=== PATIENT | female | born 1950 | race Hispanic/Latino ===

== ENCOUNTER 2016-09-16 06:12 | Inpatient (IN) | payer MEDICARE ==
--- NOTE | 2016-09-09 11:02 | Anesthesia Consultation ---
Anesthesia Consult and Med Hx Date of service: 09/09/16 - Airway Anesthetic Teeth Evaluation: Poor (broken #10, some missing teeth) ROM Head & Neck: Adequate Mental/Hyoid Distance: Adequate Mallampati Class: Class II Intubation Access Assessment: Probably Good - Pre-Operative Health Status ASA Pre-Surgery Classification: ASA2 Proposed Anesthetic Plan: Epidural, Spinal Nerve Block: fascia iliaca - Pulmonary Hx Smoking: No Hx Asthma: Yes (no spells in last few years) COPD: Yes ("MILD") Hx Sleep Apnea: No (ROBEL PRE SCREEN LOW RISK) - Cardiovascular System Hx Hypertension: No - Gastrointestinal Hx Gastroesophageal Reflux Disease: Yes - Endocrine Hx Non-Insulin Dependent Diabetes: Yes (on metformin) - Other Systems Hx Cancer: No Hx Obesity: Yes (BMI 35.3)
[2016-09-09 11:07] LABS: Basophils % (Auto) 0.3 % (0.0-1.8); Eosinophils % (Auto) 1.6 % (0.0-4.3); Hemoglobin 13.4 gm/dl (10.1-14.3); Mean Corpuscular HGB Conc 33 % (30-34); Mean Corpuscular Hemoglobin 31 pg (28-32); Mean Corpuscular Volume 94 fl (79-97); Platelet Count 247 K/mm3 (140-440); Red Blood Count 4.25 M/mm3 (3.65-5.03); Red Cell Distribution Width 12.3 % (13.2-15.2); White Blood Count 11.3 K/mm3 (4.5-11.0)
[2016-09-09 11:18] LABS: INR 1.01 (0.87-1.13)
[2016-09-09 11:19] LABS: Partial Thromboplastin Time 33.7 Sec. (24.2-36.6)
[2016-09-09 11:26] LABS: Alanine Aminotransferase 26 units/L (7-56); Albumin 3.9 g/dL (3.9-5); Albumin/Globulin Ratio 0.9 %; Alkaline Phosphatase 70 units/L (35-129); Anion Gap 19 mmol/L; BUN/Creatinine Ratio 14.28; Bilirubin,Total 0.4 mg/dL (0.1-1.2); Blood Urea Nitrogen 10 mg/dL (7-17); Carbon Dioxide 25 mmol/L (22-30); Chloride 98.5 mmol/L (98-107); Glucose 87 mg/dL (65-100); Potassium 3.9 mmol/L (3.6-5.0); Sodium 139 mmol/L (137-145); Total Protein 8.2 g/dL (6.3-8.2)
--- NOTE | 2016-09-15 16:05 | History and Physical Report ---
History of Present Illness Date of examination: 09/15/16 Date of admission: 09/16/16 Chief complaint: Pain right hip, difficulty walking, nonresponding to nonoperative management. The admitted for total hip arthroplasty right side. Medications and Allergies Allergies Allergy/AdvReac Type Severity Reaction Status Date / Time No Known Allergies Allergy Verified 09/03/16 15:14 Home Medications Medication Instructions Recorded Confirmed Last Taken Type Alendronate Sodium 35 mg PO QWEEK 09/07/16 09/07/16 Unknown History Furosemide [Lasix TAB] 40 mg PO QDAY 09/07/16 09/07/16 Unknown History HYDROcodone/APAP 5-325 [[place] 1 tab PO PRN PRN 09/07/16 09/07/16 Unknown History 5-325 mg TAB] Ibuprofen [Motrin] 800 mg PO Q8HR PRN 09/07/16 09/07/16 Unknown History Meloxicam 15 mg PO QDAY 09/07/16 09/07/16 Unknown History Promethazine [Phenergan TAB] 25 mg PO Q6HR PRN 09/07/16 09/07/16 Unknown History metFORMIN [Glucophage] 500 mg PO BID 09/07/16 09/07/16 Unknown History Active Meds: Active Medications Celecoxib (Celebrex) 200 mg PO PREOP NR Stop: 09/16/16 23:59 Famotidine (Pepcid) 20 mg IV PREOP NR Stop: 09/16/16 23:59 Gabapentin (Neurontin) 150 mg PO PREOP NR Stop: 09/16/16 23:59 Cefazolin Sodium (Ancef/Sterile Water 2 Gm/20 Ml) 20 mls @ 80 mls/hr IV PREOP NR PRN Reason: Protocol Stop: 09/16/16 23:00 Sodium Chloride (Nacl 0.9% 1000 Ml) 1,000 mls @ 100 mls/hr IV DIRECT [place] Midazolam HCl (Versed) 2 mg IV PREOP NR Stop: 09/16/16 23:59 Review of Systems All systems: negative Exam - Constitutional Vitals: Temp Pulse Resp BP Pulse Ox 99.2 F 66 20 130/60 09/09/16 10:30 09/09/16 10:30 09/09/16 10:30 09/09/16 10:30 General appearance: Present: no acute distress, well-nourished - EENT Eyes: Present: PERRL ENT: hearing intact, clear oral mucosa - Neck Neck: Present: supple, normal ROM - Respiratory Respiratory effort: normal Respiratory: bilateral: CTA - Cardiovascular Heart Sounds: Present: S1 & S2. Absent: rub, click - Extremities Extremities: pulses symmetrical, No edema Extremity abnormal: other (Right hip with limping gait,vital signs stable. Tenderness at the right hip, trochanter. Pain with flexion adduction internal rotation, internal rotation 10 with pain, external rotation 40.) Peripheral Pulses: within normal limits - Abdominal General gastrointestinal: Present: soft, non-tender, non-distended, normal bowel sounds Female genitourinary: Present: normal - Integumentary Integumentary: Present: clear, warm, dry - Musculoskeletal Musculoskeletal: gait normal, strength equal bilaterally - Psychiatric Psychiatric: appropriate mood/affect, intact judgment & insight - Neurologic Neurologic: CNII-XII intact, moves all extremities Results - Labs CBC & Chem 7: 09/09/16 10:40 09/09/16 10:40 Assessment and Plan - Patient Problems (1) Osteoarthritis of right hip Status: Chronic Qualifiers: Osteoarthritis type: primary Qualified Code(s): M16.11 - Unilateral primary osteoarthritis, right hip Plan to address problem: right total hip arthroplasty.
[~2016-09-16 06:12] MED LIST: ACD-A IV ONE; ANCEF/STERILE WATER 2 GM/20 ML 20 ML IV NR; NEURONTIN PO NR; PEPCID IV NR; VERSED IV NR
[2016-09-16] MEDS: NACL 0.9% 1000 ML 1,000 ML IV SCH ×4 (07:06→12:01)
[2016-09-16] MEDS ORDERED: DIPRIVAN 10 MG/ML IV ONE (08:09)
[2016-09-16] MEDS ORDERED: ePHEDrine SULFATE IV PRN (08:22)
[2016-09-16] MEDS ORDERED: ZOFRAN ONE (08:41)
[2016-09-16] MEDS ORDERED: ROBINUL ONE (08:41)
[2016-09-16] MEDS ORDERED: REGLAN ONE (08:41)
[2016-09-16] MEDS ORDERED: NEO SYNEPHRINE/NS Syringe(OR USE) IV ONE (08:41)
[2016-09-16] MEDS ORDERED: XYLOCAINE MPF 2% ONE (08:55)
[2016-09-16] MEDS ORDERED: NACL 0.9% IR ONE ×2 (09:18)
[2016-09-16] MEDS ORDERED: NEOSPORIN GU IR ONE (09:18)
--- NOTE | 2016-09-16 10:19 | Admit Criteria Form ---
Admission Criteria Documentation: AMBULATORY SURGERY EXCEPTION CRITERIA Ambulatory Surgery Exception Criteria ( Place 'X' for any and all applicable criteria): Surgery or procedure performed on ambulatory basis may require inpatient stay for[A] ANY ONE of the following(1)(2)(3)(4)(5)(6)(7)(8)(9): [X] I. A preoperative situation, condition, or finding that warrants inpatient stay as indicated by ANY ONE of the following: [X] a) Inpatient care needed because of severity of a disease or condition rather than the surgery (eg, severe cardiac or respiratory disease, severe infection) (15) (16 ) (17) (18) [] b) Emergent procedure (eg, angioplasty for acute ischemia)(19) [] c) Complex surgical approach or situation as indicated by ANY ONE of the following(3): [] i) Open approach needed instead of usual endoscopic, transcatheter, or other less invasive procedure [] ii) Difficult approach because of previous operation [] iii) Airway monitoring required after open neck procedures(20)(21) [] iv) Large mass requiring unusually extensive dissection [] v) Additional complicating feature requiring inpatient care (eg, drain management)(22(23): [] d) Major surgery in a pt with high anesthetic risk as indicated by ANY ONE of the following (2)(3)(5)(7)(8): [] i) ASA risk class III or higher (severe systemic disease impairing function) [D] [] ii) Advanced age (eg, older than 85 years)(14)(24) [] iii) Symptomatic heart failure(25) [] iv) Symptomatic asthma or COPD(8)(21) [] v) Morbid obesity with hemodynamic or respiratory problems(20)( 21)(26)(27) [] vi) Obstructive sleep apnea(20)(21) [] vii) Former premature infants who are younger than 60 weeks [] viii) High risk for severe postoperative abnormalities (eg, severe postoperative hypocalcemia after parathyroidectomy for severe hyperparathyroidism)(27)( 28) [] ix) Unstable angina(25) [] e) Drug-related risk requiring inpatient stay as indicated by ANY ONE of the following(5)(10)(14)(32)(33) [] i) Procedure requires discontinuing drugs or other therapy (eg , antiarrhythmic medication, antiseizure medication), which necessitates inpatient observation or treatment.(18)(31) [] ii) Major surgery and high risk drug use as indicated by ANY ONE of the following: [] 1) Active abuse of cocaine or similar drug [] 2) Monoamine oxidase inhibitor use [] 3) Other drug identified as posing risk [] f) Inadequate outpatient care situation as indicated by ANY ONE of the following(5)(10)(14)(32)(33) [] i) Patient lives remote from medical facility and procedure has urgent complication potential, and temporary nearby residence cannot be arranged [] ii) Patient will have postprocedure incapacitation and inadequate assistance at home, or alternative level of care cannot be arranged. [] iii) Patient will have long general anesthesia or procedure side effect resolution time, and competent person to stay with patient on first postoperative night at home or alternative level of care cannot be arranged. []iv) Other inadequate outpatient situation that cannot be handled by other means [] II. A perioperative event, condition, or finding that warrants inpatient stay as indicated by ANY ONE of the following (1)(2)(3): [] a) Inadequate physiologic recovery: cardiovascular, respiratory, or hemodynamic status not normal or near preoperative baseline(18) [] b) Hemodynamic instability [] c) Patient not alert with near normal or baseline mental status [] d) Temperature not normal or as expected and not appropriate for outpatient treatment of condition [] e) Ambulatory or appropriate activity level status not yet achieved post procedure [E](34)(35)(36) [] f) Operative site not appropriate (eg, unexpected or excessive drainage or bleeding) [] g) Postoperative effects not resolved or adequately managed (eg, significant pain or vomiting not appropriate for outpatient or next level of care)(10)(12) [] h) Complicating features requiring inpatient care as indicated by ANY ONE of the following(37): [] i) Severe complications of procedure (eg, bowel injury, airway compromise, vascular injury,severe hemorrhage) [] ii) Extensive (eg, dissection far beyond usual scope of procedure ) or prolonged (eg, 120 minutes beyond usual) surgery needed requiring inpatient postoperative care [] iii) Conversion to an open or complex procedure that requires inpatient care (eg, open vs laparoscopic cholecystectomy, abdominal vs vaginal hysterectomy)(38) [] iv) Comorbid condition or test result identified during or post procedure that requires inpatient care (7) [] v) Malignant hyperthermia(30) [] vi) Other complicating feature requiring inpatient care(22)(23) Inpatient stay may be needed until ALL of the following are present (1)(2)(3)(4) (5)(6)(10)(14)(33)(40): []a) Physiologic recovery: cardiovascular, respiratory, and hemodynamic status normal or near preoperative baseline []b) Hemodynamic stability []c) Patient alert, with near normal or baseline mental status []d) Temperature appropriate: patient afebrile or temperature appropriate for outpt treatment of condition []e) Activity level appropriate: ambulatory or appropriate activity level post procedure []f) Operative site appropriate as indicated by ALL of the following: []i) Site dry or with expected drainage []ii) Any blood noted is as expected for procedure. []g) Postoperative effects resolved or managed as indicated by ALL of the following: []i) Pain management appropriate for outpatient (or next level of) care(10) []ii) Minimal nausea and vomiting: if present, successfully treated with oral medication(12) []iii) Headache, dizziness, or drowsiness (if present) are mild. []h) Voiding status acceptable as indicated by ANY ONE of the following: []i) Voiding spontaneously []ii) No voiding but instructions given for follow-up in 6 to 8 hours []iii) Urinary catheter in place, and instructions given for follow-up []i) Complicating features requiring inpatient care manageable at a lower level of care(37) []j) Comorbid conditions manageable at a lower level of care(37) The original [employer] content created by [employer] has been revised. The portions of the content which have been revised are identified through the use of italic text or in bold, and [email or web address] has neither reviewed nor approved the modified material. All other unmodified content is copyright [employer]. Please see references footnoted in the original [employer] edition 2016 Admission Criteria Met: Yes
--- NOTE | 2016-09-16 10:22 | Procedure Note ---
Date of procedure: 09/16/16 Pre-op diagnosis: DJD right hip Post-op diagnosis: same Procedure: Right total hip arthroplastty Anesthesia: GETA, spinal Surgeon: FARHEEN LABOY Estimated blood loss: other Pathology: list Specimen disposition: to lab Condition: stable Disposition: PACU
[2016-09-16] MEDS ORDERED: NARCAN 0.4 MG/1 ML IV PRN ×2 (10:29→16:33)
[2016-09-16] MEDS ORDERED: SODIUM CHLORIDE FLUSH SYRINGE 10 ML IV PRN ×2 (10:35→16:33)
[2016-09-16] MEDS ORDERED: SUBLIMAZE ONE (10:43)
[2016-09-16] MEDS ORDERED: MORPHINE PCA 30MG/30ML IV SCH (11:00)
[2016-09-16] MEDS ORDERED: ZOFRAN IV PRN ×2 (11:00→16:33)
[2016-09-16] MEDS ORDERED: fentaNYL-BUPIV 2 MCG/ML-0.125% 100 ML EPIDURAL SCH (11:00)
--- NOTE | 2016-09-16 11:33 | Operative Report ---
PREOPERATIVE DIAGNOSIS: Severe degenerative joint disease, right hip. POSTOPERATIVE DIAGNOSIS: Severe degenerative joint disease, right hip. OPERATIVE PROCEDURE: Right total hip arthroplasty using [place] system, components press fitted. SURGEON: Roberto Carlos Yost MD CORPORATE LICENSED BROKER: Emilia Alcazar CSA. ANESTHESIA: Spinal. BLOOD LOSS: . DESCRIPTION OF PROCEDURE: The patient was taken to surgery suite, satisfactory analgesia obtained with spinal anesthetic supplemented with general sedation for muscle relaxation. She was positioned on lateral position, right hip area prepped with ChloraPrep, satisfactorily draped. After confirming the correct patient, procedure, and surgical site, an incision was made starting at a point approximately 2 cm distal to the greater trochanter extending to the posterosuperior iliac spine. Incision was deepened through the thickness of skin and subcutaneous, deep fascia incised and the gluteus was split. Joint capsule was incised. Hip was dislocated posteriorly. Femoral head appeared severely deformed with moderate fibrosis in the joint capsule and with severe deformity involving the superior aspect of the femoral head. The femoral head was then resected approximately 1 cm proximal to the lesser trochanter. The femur was reamed and broached to size 8 press fit which appeared giving satisfactory fit. The acetabulum was then reamed to 54 mm diameter to subchondral level. Remaining osteophytes were debrided. After irrigation, a 52 mm acetabular shell was press fitted at 40 degree abduction and 20 degree anteversion. Through the superior quadrant, a drill hole was made and a screw length 30 mm size 6.5 mm diameter applied thereby stabilizing the shell. The shell was then coupled with an acetabular shell to give 36 mm diameter inside and 10 degree posterior superior overlap. The wound was irrigated and press fitted with a femoral stem size 8. Trial reduction carried out using a 36 mm femoral head zero neck length, which appeared giving equalization of leg length and satisfactory range of motion and hip appeared stable both anterior and posterior. Trial head was then exchanged for a ceramic head 36 mm diameter and the hip was again reduced. Following irrigation, the wound was closed in layers in the standard fashion. Sterile dressings were applied with abduction wedge. The patient was transferred to recovery room in satisfactory condition, tolerated the procedure well and at the completion of procedure, counts were accurate. JOB# [id number] BUD/ANDREW KENDRICK
--- NOTE | 2016-09-16 11:48 | XRay Report ---
Right hip single view: History: Right hip arthroplasty. Findings: There is total hip replacement noted. The acetabular and the femoral component appears anatomic and in alignment. No fracture or dislocation. Impression: Stable right hip arthroplasty.
[2016-09-16] MEDS: DILAUDID IV PRN ×2 (11:55→12:15)
--- NOTE | 2016-09-16 12:24 | Post Anesthesia Evaluation ---
- Post Anesthesia Evaluation Patient Participated: Yes Airway Patent: Yes Stable Respiratory Function: Yes Temp > 96.8F: Yes Pain Manageable: Yes Adequeate Hydration: Yes Anesthesia Complications: No Block Receding Appropriately: Yes
--- NOTE | 2016-09-16 12:25 | Anesthesia Day of Surgery ---
Anesthesia Day of Surgery - Day of Surgery Patient Examined: Yes Patient H&P Reviewed: Yes Patient is NPO: Yes
[2016-09-16] MEDS ORDERED: LOPRESSOR IV NR (13:13)
[2016-09-16] MEDS ORDERED: D50W (25GM) IV PRN (16:33)
[2016-09-16] MEDS ORDERED: TYLENOL PO PRN (16:33)
[2016-09-16] MEDS ORDERED: ANCEF/NS 1 GM/50 ML 50 ML IV SCH (16:33)
[2016-09-16] MEDS ORDERED: AMBIEN PO PRN (16:33)
[2016-09-16] MEDS: GLUCOPHAGE PO SCH (21:11)
[2016-09-16] MEDS: ASPIRIN PO SCH (21:11)
[2016-09-16] MEDS: COLACE PO SCH (21:11)
--- NOTE | 2016-09-16 21:36 | Consultation ---
History of Present Illness - Reason for Consult Consult date: 09/16/16 Medical management Requesting physician: FARHEEN LABOY - History of Present Illness S/p Rt Hip Arthroplasty-post op doing well. Past History Past Medical History: arthritis, diabetes, hypertension, other (osteoporosis) Past Surgical History: total hip replacement Social history: lives with family Medications and Allergies Allergies Allergy/AdvReac Type Severity Reaction Status Date / Time No Known Allergies Allergy Verified 09/03/16 15:14 Home Medications Medication Instructions Recorded Confirmed Last Taken Type Alendronate Sodium 35 mg PO QWEEK 09/07/16 09/16/16 09/11/16 09:00 History Furosemide [Lasix TAB] 40 mg PO QDAY 09/07/16 09/16/16 09/15/16 20:00 History HYDROcodone/APAP 5-325 [[place] 1 tab PO PRN PRN 09/07/16 09/16/16 09/15/16 20:00 History 5-325 mg TAB] Ibuprofen [Motrin] 800 mg PO Q8HR PRN 09/07/16 09/07/16 Unknown History Meloxicam 15 mg PO QDAY 09/07/16 09/16/16 09/14/16 09:00 History Promethazine [Phenergan TAB] 25 mg PO Q6HR PRN 09/07/16 09/07/16 Unknown History metFORMIN [Glucophage] 500 mg PO BID 09/07/16 09/16/16 09/15/16 20:00 History Active Meds: Active Medications Acetaminophen (Tylenol) 650 mg PO Q4H PRN PRN Reason: Pain MILD(1-3)/Fever >100.5/CHAIREZ Aspirin (Aspirin) 325 mg PO BID [facility] Last Admin: 09/16/16 21:11 Dose: 325 mg Celecoxib (Celebrex) 100 mg PO BID [facility] Last Admin: 09/16/16 21:12 Dose: 100 mg Dextrose (D50w (25gm)) 50 ml IV PRN PRN PRN Reason: Hypoglycemia Docusate Sodium (Colace) 100 mg PO BID [facility] Last Admin: 09/16/16 21:11 Dose: 100 mg Enoxaparin Sodium (Lovenox) 40 mg SUB-Q QDAY [facility] Furosemide (Lasix) 40 mg PO QDAY [facility] Sodium Chloride (Nacl 0.9% 1000 Ml) 1,000 mls @ 100 mls/hr IV DIRECT [facility] Last Admin: 09/16/16 12:01 Dose: 100 mls/hr Fentanyl/Bupivacaine/Sodium Chlor (Fentanyl-Bupiv 2 Mcg/Ml-0.125%) 100 mls @ 10 mls/hr EPIDURAL DIRECT [facility] PRN Reason: Protocol Stop: 09/17/16 11:00 Last Admin: 09/16/16 11:50 Dose: 10 mls/hr Cefazolin Sodium (Ancef/Ns 1 Gm/50 Ml) 50 mls @ 100 mls/hr IV Q8H [facility] Stop: 09/17/16 01:02 Metformin HCl (Glucophage) 500 mg PO BID@0800,2000 [facility] Last Admin: 09/16/16 21:11 Dose: 500 mg Multivitamins (Theragran Tab) 1 each PO QDAY [facility] Naloxone HCl (Narcan 0.4 Mg/1 Ml) 0.1 mg IV Q2MIN PRN PRN Reason: Res Rate </= 8 or 02 SAT < 92% Ondansetron HCl (Zofran) 4 mg IV Q8H PRN PRN Reason: Nausea And Vomiting Oxycodone HCl (Oxycontin) 10 mg PO Q12HR [facility] Oxycodone/Acetaminophen (Percocet 5/325) 1 tab PO Q6H PRN PRN Reason: Pain, Moderate (4-6) Sodium Chloride (Sodium Chloride Flush Syringe 10 Ml) 10 ml IV PRN PRN PRN Reason: LINE FLUSH Zolpidem Tartrate (Ambien) 5 mg PO QHS PRN PRN Reason: Sleep Review of Systems All systems: negative Exam - Constitutional Vitals: Temp Pulse Resp BP Pulse Ox 99.2 F 91 H 20 116/56 95 09/16/16 19:30 09/16/16 19:30 09/16/16 19:30 09/16/16 19:30 09/16/16 19:30 General appearance: Present: no acute distress, well-nourished - EENT Eyes: Present: PERRL ENT: hearing intact, clear oral mucosa - Neck Neck: Present: supple, normal ROM - Respiratory Respiratory effort: normal Respiratory: bilateral: CTA - Cardiovascular Heart Sounds: Present: S1 & S2. Absent: rub, click - Extremities Extremities: pulses symmetrical, No edema Peripheral Pulses: within normal limits - Abdominal General gastrointestinal: Present: soft, non-tender, non-distended, normal bowel sounds Female genitourinary: Present: normal - Integumentary Integumentary: Present: clear, warm, dry - Musculoskeletal Musculoskeletal: gait normal, strength equal bilaterally - Psychiatric Psychiatric: appropriate mood/affect, intact judgment & insight - Neurologic Neurologic: CNII-XII intact, moves all extremities Results - Labs CBC & Chem 7: 09/09/16 10:40 09/09/16 10:40 Labs: Abnormal lab results 09/16/16 Range/Units 17:04 POC Glucose 159 H (70-105) Assessment and Plan - Patient Problems (1) Osteoarthritis of right hip Current Visit: Yes Status: Chronic Qualifiers: Osteoarthritis type: primary Qualified Code(s): M16.11 - Unilateral primary osteoarthritis, right hip Plan to address problem: S/p rt KELLY (2) T2DM (type 2 diabetes mellitus) Current Visit: Yes Status: Chronic Qualifiers: Diabetes mellitus complication status: without complication Diabetes mellitus watermaster insulin use: without watermaster use Qualified Code(s): E11.9 - Type 2 diabetes mellitus without complications Plan to address problem: Metformin and coverage (3) Arthritis Current Visit: Yes Status: Chronic Plan to address problem: On meloxicam (4) Osteoporosis Current Visit: Yes Status: Chronic Plan to address problem: On Alendronate (5) Edema extremities Current Visit: Yes Status: Chronic Plan to address problem: on lasix 40 mg po qd (6) DVT prophylaxis Current Visit: Yes Status: Acute Plan to address problem: On Lovenox
[2016-09-16] MEDS ORDERED: GLUCOPHAGE PO SCH (22:00)
[2016-09-17] MEDS: OxyCONTIN PO SCH ×3 (05:35→21:49)
[2016-09-17] MEDS: ASPIRIN PO SCH ×2 (09:10→21:48)
[2016-09-17] MEDS: LASIX PO SCH (09:10)
[2016-09-17] MEDS: COLACE PO SCH ×2 (09:10→21:49)
[2016-09-17] MEDS: THERAGRAN Tab PO SCH (09:10)
[2016-09-17] MEDS: GLUCOPHAGE PO SCH ×2 (09:11→21:50)
[2016-09-17] MEDS: NOVOLOG SUB-Q SCH (09:11)
[2016-09-17] MEDS: PERCOCET 5/325 PO PRN (12:52)
--- NOTE | 2016-09-17 13:39 | Progress Note ---
Assessment and Plan Assessment and plan: Patient is a pleasant 66-year-old female admitted to the hospital for right hip arthroplasty following severe right hip pain that has failed outpatient therapy. - Patient Problems (1) Osteoarthritis of right hip Current Visit: Yes Status: Chronic Qualifiers: Osteoarthritis type: primary Qualified Code(s): M16.11 - Unilateral primary osteoarthritis, right hip Plan to address problem: Status post right hip arthroplasty stable. Worked with physical therapy. Pain control per surgeon. Incentive spirometer encouraged and discussed in detail with the patient. (2) Arthritis Current Visit: Yes Status: Chronic Plan to address problem: Stable continue current therapy (3) Edema extremities Current Visit: Yes Status: Chronic Plan to address problem: Continue current lasix. Monitor Renal function (4) Osteoporosis Current Visit: Yes Status: Chronic (5) T2DM (type 2 diabetes mellitus) Current Visit: Yes Status: Chronic Qualifiers: Diabetes mellitus complication status: without complication Diabetes mellitus custodial insulin use: without custodial use Qualified Code(s): E11.9 - Type 2 diabetes mellitus without complications Plan to address problem: Continue metformin (6) DVT prophylaxis Current Visit: Yes Status: Acute History Interval history: Follow-up right hip arthroplasty-postop day 1 Patient seen and examined this morning in no acute distress Denies any chest pain, nausea, vomiting, diarrhea No fever noted blood pressure controlled No adverse events reported to me by nursing staff Hospitalist Physical - Physical exam Narrative exam: VITAL SIGNS: Reviewed. GENERAL: The patient appeared well nourished and normally developed. Vital signs as documented. HEAD: No signs of head trauma. EYES: Pupils are equal. Extraocular motions intact. EARS: Hearing grossly intact. MOUTH: Oropharynx is normal. NECK: No adenopathy, no JVD. CHEST: Chest with clear breath sounds bilaterally. No wheezes, rales, or rhonchi. CARDIAC: Regular rate and rhythm. S1 and S2, without murmurs, gallops, or rubs. VASCULAR: No Edema. Peripheral pulses normal and equal in all extremities. ABDOMEN: Soft, without detectable tenderness. No sign of distention. No rebound or guarding, and no masses palpated. Bowel Sounds normal. MUSCULOSKELETAL: Good range of motion of all major joints. Extremities without clubbing, cyanosis or edema. NEUROLOGIC EXAM: Alert and oriented x 3. No focal sensory or strength deficits. Speech normal. Follows commands. PSYCHIATRIC: Mood normal. SKIN: Right hip surgical dressing in place no overt drainage - Constitutional Vitals: Temp Pulse Resp BP Pulse Ox 98.9 F 89 16 115/53 91 09/17/16 12:00 09/17/16 12:00 09/17/16 12:52 09/17/16 12:00 09/17/16 08:18 General appearance: Present: no acute distress, well-nourished Results - Labs CBC & Chem 7: 09/09/16 10:40 09/09/16 10:40 Labs: Laboratory Last Values WBC 11.3 K/mm3 (4.5-11.0) H 09/09/16 10:40 RBC 4.25 M/mm3 (3.65-5.03) 09/09/16 10:40 Hgb 13.4 gm/dl (10.1-14.3) 09/09/16 10:40 Hct 40.0 % (30.3-42.9) 09/09/16 10:40 MCV 94 fl (79-97) 09/09/16 10:40 MCH 31 pg (28-32) 09/09/16 10:40 MCHC 33 % (30-34) 09/09/16 10:40 RDW 12.3 % (13.2-15.2) L 09/09/16 10:40 Plt Count 247 K/mm3 (140-440) 09/09/16 10:40 Lymph % (Auto) 31.3 % (13.4-35.0) 09/09/16 10:40 [place] % (Auto) 10.9 % (0.0-7.3) H 09/09/16 10:40 Eos % (Auto) 1.6 % (0.0-4.3) 09/09/16 10:40 Baso % (Auto) 0.3 % (0.0-1.8) 09/09/16 10:40 Lymph # 3.5 K/mm3 (1.2-5.4) 09/09/16 10:40 [place] # 1.2 K/mm3 (0.0-0.8) H 09/09/16 10:40 Eos # 0.2 K/mm3 (0.0-0.4) 09/09/16 10:40 Baso # 0.0 K/mm3 (0.0-0.1) 09/09/16 10:40 Seg Neutrophils % 55.9 % (40.0-70.0) 09/09/16 10:40 Seg Neutrophils # 6.3 K/mm3 (1.8-7.7) 09/09/16 10:40 PT 13.2 Sec. (12.2-14.9) 09/09/16 10:40 INR 1.01 (0.87-1.13) 09/09/16 10:40 APTT 33.7 Sec. (24.2-36.6) 09/09/16 10:40 Sodium 139 mmol/L (137-145) 09/09/16 10:40 Potassium 3.9 mmol/L (3.6-5.0) 09/09/16 10:40 Chloride 98.5 mmol/L (98-107) 09/09/16 10:40 Carbon Dioxide 25 mmol/L (22-30) 09/09/16 10:40 Anion Gap 19 mmol/L 09/09/16 10:40 BUN 10 mg/dL (7-17) 09/09/16 10:40 Creatinine 0.7 mg/dL (0.7-1.2) 09/09/16 10:40 Estimated GFR > 60 ml/min 09/09/16 10:40 BUN/Creatinine Ratio 14.28 % 09/09/16 10:40 Glucose 87 mg/dL (65-100) 09/09/16 10:40 POC Glucose 116 (70-105) H 09/17/16 11:41 Calcium 10.0 mg/dL (8.4-10.2) 09/09/16 10:40 Total Bilirubin 0.4 mg/dL (0.1-1.2) 09/09/16 10:40 AST 43 units/L (5-40) H 09/09/16 10:40 ALT 26 units/L (7-56) 09/09/16 10:40 Alkaline Phosphatase 70 units/L (35-129) 09/09/16 10:40 Total Protein 8.2 g/dL (6.3-8.2) 09/09/16 10:40 Albumin 3.9 g/dL (3.9-5) 09/09/16 10:40 Albumin/Globulin Ratio 0.9 % 09/09/16 10:40 Blood Type O POSITIVE 09/16/16 06:45 Antibody Screen Negative 09/16/16 06:45
--- NOTE | 2016-09-17 15:28 | Progress Note ---
Assessment and Plan - Patient Problems (1) Osteoarthritis of right hip Current Visit: Yes Status: Chronic Qualifiers: Osteoarthritis type: primary Qualified Code(s): M16.11 - Unilateral primary osteoarthritis, right hip Plan to address problem: Continue with progressive ablation, DVT prophylaxis, plan discharge in the next one to 2 days. Subjective Date of service: 09/17/16 Interval history: Status post total hip arthroplasty, sat by bedside, no complaints today. No calf pain, tenderness. Objective Vital signs: Vital Signs - 12hr 09/17/16 09/17/16 09/17/16 04:00 07:00 08:00 Temperature 99.1 F 93 F L Pulse Rate [ Apical] Pulse Rate [ 104 H Right From Monitor] Respiratory 20 18 20 Rate Respiratory Rate [Right Hip ] Blood Pressure 102/48 118/54 [Right Arm] O2 Sat by Pulse 96 93 Oximetry 09/17/16 09/17/16 09/17/16 08:10 08:18 09:10 Temperature Pulse Rate [ Apical] Pulse Rate [ Right From Monitor] Respiratory 20 Rate Respiratory Rate [Right Hip ] Blood Pressure [Right Arm] O2 Sat by Pulse 93 91 Oximetry 09/17/16 09/17/16 09/17/16 09:11 10:10 10:11 Temperature Pulse Rate [ Apical] Pulse Rate [ Right From Monitor] Respiratory 20 16 20 Rate Respiratory Rate [Right Hip ] Blood Pressure [Right Arm] O2 Sat by Pulse Oximetry 09/17/16 09/17/16 09/17/16 10:24 12:00 12:52 Temperature 98.9 F Pulse Rate [ 89 Apical] Pulse Rate [ Right From Monitor] Respiratory 18 16 Rate Respiratory 16 Rate [Right Hip ] Blood Pressure 115/53 [Right Arm] O2 Sat by Pulse Oximetry 09/17/16 15:23 Temperature 98.8 F Pulse Rate [ 100 H Apical] Pulse Rate [ Right From Monitor] Respiratory 18 Rate Respiratory Rate [Right Hip ] Blood Pressure 119/54 [Right Arm] O2 Sat by Pulse Oximetry - Labs CBC & BMP: 09/09/16 10:40 09/09/16 10:40 Labs: Abnormal lab results 09/16/16 09/17/16 09/17/16 Range/Units 17:04 08:11 11:41 POC Glucose 159 H 126 H 116 H (70-105)
[2016-09-17] MEDS: NACL 0.9% 1000 ML 1,000 ML IV SCH (16:40)
[2016-09-17] MEDS: LOVENOX SUB-Q SCH (17:14)
[2016-09-18] MEDS: NACL 0.9% 1000 ML 1,000 ML IV SCH ×2 (01:42→10:42)
[2016-09-18] MEDS: NOVOLOG SUB-Q SCH (08:41)
[2016-09-18] MEDS: GLUCOPHAGE PO SCH ×2 (10:41→19:50)
[2016-09-18] MEDS: LASIX PO SCH (10:42)
[2016-09-18] MEDS: LOVENOX SUB-Q SCH (10:42)
[2016-09-18] MEDS: PERCOCET 5/325 PO PRN ×2 (10:42→19:50)
[2016-09-18] MEDS: COLACE PO SCH ×2 (10:42→22:15)
[2016-09-18] MEDS: THERAGRAN Tab PO SCH (10:42)
[2016-09-18] MEDS: OxyCONTIN PO SCH ×2 (10:42→22:56)
[2016-09-18] MEDS: ASPIRIN PO SCH ×2 (10:42→22:55)
--- NOTE | 2016-09-18 12:17 | Progress Note ---
Assessment and Plan Assessment and plan: Patient is a pleasant 66-year-old female admitted to the hospital for right hip arthroplasty following severe right hip pain that has failed outpatient therapy. - Patient Problems (1) Osteoarthritis of right hip Current Visit: Yes Status: Chronic Qualifiers: Osteoarthritis type: primary Qualified Code(s): M16.11 - Unilateral primary osteoarthritis, right hip Plan to address problem: Status post right hip arthroplasty stable. Worked with physical therapy. Pain control per surgeon. Incentive spirometer encouraged and discussed in detail with the patient. (2) Arthritis Current Visit: Yes Status: Chronic Plan to address problem: Stable continue current therapy (3) Edema extremities Current Visit: Yes Status: Chronic Plan to address problem: Continue current lasix. Monitor Renal function (4) Osteoporosis Current Visit: Yes Status: Chronic (5) T2DM (type 2 diabetes mellitus) Current Visit: Yes Status: Chronic Qualifiers: Diabetes mellitus complication status: without complication Diabetes mellitus alf insulin use: without alf use Qualified Code(s): E11.9 - Type 2 diabetes mellitus without complications Plan to address problem: Continue metformin (6) DVT prophylaxis Current Visit: Yes Status: Acute History Interval history: Follow-up right hip arthroplasty-postop day 2 Patient seen and examined this morning in no acute distress Denies any chest pain, nausea, vomiting, diarrhea No fever noted blood pressure controlled No adverse events reported to me by nursing staff Hospitalist Physical - Physical exam Narrative exam: VITAL SIGNS: Reviewed. GENERAL: The patient appeared well nourished and normally developed. Vital signs as documented. HEAD: No signs of head trauma. EYES: Pupils are equal. Extraocular motions intact. EARS: Hearing grossly intact. MOUTH: Oropharynx is normal. NECK: No adenopathy, no JVD. CHEST: Chest with clear breath sounds bilaterally. No wheezes, rales, or rhonchi. CARDIAC: Regular rate and rhythm. S1 and S2, without murmurs, gallops, or rubs. VASCULAR: No Edema. Peripheral pulses normal and equal in all extremities. ABDOMEN: Soft, without detectable tenderness. No sign of distention. No rebound or guarding, and no masses palpated. Bowel Sounds normal. MUSCULOSKELETAL: Good range of motion of all major joints. Extremities without clubbing, cyanosis or edema. NEUROLOGIC EXAM: Alert and oriented x 3. No focal sensory or strength deficits. Speech normal. Follows commands. PSYCHIATRIC: Mood normal. SKIN: Right hip surgical dressing in place no overt drainage - Constitutional Vitals: Temp Pulse Resp BP Pulse Ox 98.5 F 96 H 19 121/58 98 09/18/16 08:00 09/18/16 08:00 09/18/16 10:42 09/18/16 08:00 09/18/16 08:00 General appearance: Present: no acute distress, well-nourished Results - Labs CBC & Chem 7: 09/09/16 10:40 09/09/16 10:40 Labs: Laboratory Last Values WBC 11.3 K/mm3 (4.5-11.0) H 09/09/16 10:40 RBC 4.25 M/mm3 (3.65-5.03) 09/09/16 10:40 Hgb 13.4 gm/dl (10.1-14.3) 09/09/16 10:40 Hct 40.0 % (30.3-42.9) 09/09/16 10:40 MCV 94 fl (79-97) 09/09/16 10:40 MCH 31 pg (28-32) 09/09/16 10:40 MCHC 33 % (30-34) 09/09/16 10:40 RDW 12.3 % (13.2-15.2) L 09/09/16 10:40 Plt Count 247 K/mm3 (140-440) 09/09/16 10:40 Lymph % (Auto) 31.3 % (13.4-35.0) 09/09/16 10:40 [place] % (Auto) 10.9 % (0.0-7.3) H 09/09/16 10:40 Eos % (Auto) 1.6 % (0.0-4.3) 09/09/16 10:40 Baso % (Auto) 0.3 % (0.0-1.8) 09/09/16 10:40 Lymph # 3.5 K/mm3 (1.2-5.4) 09/09/16 10:40 [place] # 1.2 K/mm3 (0.0-0.8) H 09/09/16 10:40 Eos # 0.2 K/mm3 (0.0-0.4) 09/09/16 10:40 Baso # 0.0 K/mm3 (0.0-0.1) 09/09/16 10:40 Seg Neutrophils % 55.9 % (40.0-70.0) 09/09/16 10:40 Seg Neutrophils # 6.3 K/mm3 (1.8-7.7) 09/09/16 10:40 PT 13.2 Sec. (12.2-14.9) 09/09/16 10:40 INR 1.01 (0.87-1.13) 09/09/16 10:40 APTT 33.7 Sec. (24.2-36.6) 09/09/16 10:40 Sodium 139 mmol/L (137-145) 09/09/16 10:40 Potassium 3.9 mmol/L (3.6-5.0) 09/09/16 10:40 Chloride 98.5 mmol/L (98-107) 09/09/16 10:40 Carbon Dioxide 25 mmol/L (22-30) 09/09/16 10:40 Anion Gap 19 mmol/L 09/09/16 10:40 BUN 10 mg/dL (7-17) 09/09/16 10:40 Creatinine 0.7 mg/dL (0.7-1.2) 09/09/16 10:40 Estimated GFR > 60 ml/min 09/09/16 10:40 BUN/Creatinine Ratio 14.28 % 09/09/16 10:40 Glucose 87 mg/dL (65-100) 09/09/16 10:40 POC Glucose 166 (70-105) H 09/18/16 11:13 Calcium 10.0 mg/dL (8.4-10.2) 09/09/16 10:40 Total Bilirubin 0.4 mg/dL (0.1-1.2) 09/09/16 10:40 AST 43 units/L (5-40) H 09/09/16 10:40 ALT 26 units/L (7-56) 09/09/16 10:40 Alkaline Phosphatase 70 units/L (35-129) 09/09/16 10:40 Total Protein 8.2 g/dL (6.3-8.2) 09/09/16 10:40 Albumin 3.9 g/dL (3.9-5) 09/09/16 10:40 Albumin/Globulin Ratio 0.9 % 09/09/16 10:40 Blood Type O POSITIVE 09/16/16 06:45 Antibody Screen Negative 09/16/16 06:45
--- NOTE | 2016-09-18 14:09 | Progress Note ---
Assessment and Plan - Patient Problems (1) Osteoarthritis of right hip Current Visit: Yes Status: Chronic Qualifiers: Osteoarthritis type: primary Qualified Code(s): M16.11 - Unilateral primary osteoarthritis, right hip Plan to address problem: Continue with progressive ablation, DVT prophylaxis, plan discharge in the next one to 2 [address] placement Subjective Date of service: 09/18/16 Interval history: Status post total hip arthroplasty, sat by bedside, no complaints today. No calf pain, tenderness. Objective Vital signs: Vital Signs - 12hr 09/18/16 09/18/16 09/18/16 04:50 07:20 08:00 Temperature 98.5 F Pulse Rate [ 96 H Apical] Pulse Rate [ 93 H Right From Monitor] Respiratory 18 20 Rate Blood Pressure 114/60 121/58 [Right Arm] O2 Sat by Pulse 95 98 Oximetry 09/18/16 10:42 Temperature Pulse Rate [ Apical] Pulse Rate [ Right From Monitor] Respiratory 19 Rate Blood Pressure [Right Arm] O2 Sat by Pulse Oximetry - Labs CBC & BMP: 09/09/16 10:40 09/09/16 10:40 Labs: Abnormal lab results 09/17/16 09/17/16 09/18/16 Range/Units 16:12 21:57 07:35 POC Glucose 145 H 176 H 111 H (70-105) 09/18/16 Range/Units 11:13 POC Glucose 166 H (70-105)
--- NOTE | 2016-09-18 14:09 | Discharge Summary ---
[id number] 09/22/16 Attending physician: FARHEEN LABOY 09/16/16 00:01 Consult to Case Management [CONS] Routine Services Needed at Discharge: Home Health Services DME Equipment Physical Therapy Notified:: INCIDENT HANDLER Additional Physician Instructions: Patient requests home health with nursing and PT Consult to Physician [CONS] Routine Consulting Provider: CAROL JIMÉNEZ Reason For Exam: post op medical care Place consult to:: DR. JIMÉNEZ Notified:: DR. JIMÉNEZ Was contact made?: Yes If yes, spoke with:: DR. JIMÉNEZ Comment:: COMPLETED - SUFFOLK Physical Therapy Evaluation and Treat [CONS] Routine Comment: Reason For Exam: s/p right total hip Mode of Transport?: Wheelchair Weight bearing status?: Partial wt bearing Assistive devices?: Yes If so list: Walker Primary care physician: EL STRONG Hospitalization Reason for admission: DJD hip Condition: Stable Procedures: total hip arthroplasty Dixon, noncemented Hospital course: no complications, uneventful Disposition: DC/[place] SNF W [facility] CERT - Discharge Diagnoses (1) Osteoarthritis of right hip Status: Chronic Qualifiers: Osteoarthritis type: primary Qualified Code(s): M16.11 - Unilateral primary osteoarthritis, right hip Core Measure Documentation - Palliative Care Palliative Care/ Comfort Measures: Not Applicable - Core Measures Any of the following diagnoses?: none Exam - Constitutional Vitals: Temp Pulse Resp BP Pulse Ox 98.5 F 96 H 19 121/58 98 09/18/16 08:00 09/18/16 08:00 09/18/16 10:42 09/18/16 08:00 09/18/16 08:00 Plan Activity: no driving until cleared by PCP, up only with assistance, fall precautions, avoid flexion Weight Bearing Status: Full Weight Bearing Diet: diabetic Wound: per your surgeon's advice Durable Medical Equipment Needed Upon Discharge: Walker-Rolling, Bedside commode -elevated Follow up with: EL STRONG MD [Primary Care Provider] - 7 Days FARHEEN LABOY MD [Staff Physician] - 7 Days
[2016-09-19] MEDS: GLUCOPHAGE PO SCH ×2 (08:30→21:19)
[2016-09-19] MEDS: NOVOLOG SUB-Q SCH (08:30)
--- NOTE | 2016-09-19 09:02 | Progress Note ---
Assessment and Plan Assessment and plan: Patient is a pleasant 66-year-old female admitted to the hospital for right hip arthroplasty following severe right hip pain that has failed outpatient therapy. - Patient Problems (1) Osteoarthritis of right hip Current Visit: Yes Status: Chronic Qualifiers: Osteoarthritis type: primary Qualified Code(s): M16.11 - Unilateral primary osteoarthritis, right hip Plan to address problem: Status post right hip arthroplasty stable. Worked with physical therapy. Pain control per surgeon. Incentive spirometer encouraged and discussed in detail with the patient. AWAITING placement (2) Arthritis Current Visit: Yes Status: Chronic Plan to address problem: Stable continue current therapy (3) Edema extremities Current Visit: Yes Status: Chronic Plan to address problem: Continue current lasix. Monitor Renal function (4) Osteoporosis Current Visit: Yes Status: Chronic (5) T2DM (type 2 diabetes mellitus) Current Visit: Yes Status: Chronic Qualifiers: Diabetes mellitus complication status: without complication Diabetes mellitus assisted insulin use: without watermaster use Qualified Code(s): E11.9 - Type 2 diabetes mellitus without complications Plan to address problem: Continue metformin (6) DVT prophylaxis Current Visit: Yes Status: Acute History Interval history: Follow-up right hip arthroplasty-postop day 3 Patient seen and examined this morning in no acute distress Denies any chest pain, nausea, vomiting, diarrhea No fever noted blood pressure controlled No adverse events reported to me by nursing staff Hospitalist Physical - Physical exam Narrative exam: VITAL SIGNS: Reviewed. GENERAL: The patient appeared well nourished and normally developed. Vital signs as documented. HEAD: No signs of head trauma. EYES: Pupils are equal. Extraocular motions intact. EARS: Hearing grossly intact. MOUTH: Oropharynx is normal. NECK: No adenopathy, no JVD. CHEST: Chest with clear breath sounds bilaterally. No wheezes, rales, or rhonchi. CARDIAC: Regular rate and rhythm. S1 and S2, without murmurs, gallops, or rubs. VASCULAR: No Edema. Peripheral pulses normal and equal in all extremities. ABDOMEN: Soft, without detectable tenderness. No sign of distention. No rebound or guarding, and no masses palpated. Bowel Sounds normal. MUSCULOSKELETAL: Good range of motion of all major joints. Extremities without clubbing, cyanosis or edema. NEUROLOGIC EXAM: Alert and oriented x 3. No focal sensory or strength deficits. Speech normal. Follows commands. PSYCHIATRIC: Mood normal. SKIN: Right hip surgical dressing in place no overt drainage - Constitutional Vitals: Temp Pulse Resp BP Pulse Ox 99.5 F 94 H 18 122/53 97 09/19/16 07:20 09/19/16 07:20 09/19/16 07:20 09/19/16 07:20 09/18/16 22:59 General appearance: Present: no acute distress, well-nourished Results - Labs CBC & Chem 7: 09/09/16 10:40 09/09/16 10:40 Labs: Laboratory Last Values WBC 11.3 K/mm3 (4.5-11.0) H 09/09/16 10:40 RBC 4.25 M/mm3 (3.65-5.03) 09/09/16 10:40 Hgb 13.4 gm/dl (10.1-14.3) 09/09/16 10:40 Hct 40.0 % (30.3-42.9) 09/09/16 10:40 MCV 94 fl (79-97) 09/09/16 10:40 MCH 31 pg (28-32) 09/09/16 10:40 MCHC 33 % (30-34) 09/09/16 10:40 RDW 12.3 % (13.2-15.2) L 09/09/16 10:40 Plt Count 247 K/mm3 (140-440) 09/09/16 10:40 Lymph % (Auto) 31.3 % (13.4-35.0) 09/09/16 10:40 [place] % (Auto) 10.9 % (0.0-7.3) H 09/09/16 10:40 Eos % (Auto) 1.6 % (0.0-4.3) 09/09/16 10:40 Baso % (Auto) 0.3 % (0.0-1.8) 09/09/16 10:40 Lymph # 3.5 K/mm3 (1.2-5.4) 09/09/16 10:40 [place] # 1.2 K/mm3 (0.0-0.8) H 09/09/16 10:40 Eos # 0.2 K/mm3 (0.0-0.4) 09/09/16 10:40 Baso # 0.0 K/mm3 (0.0-0.1) 09/09/16 10:40 Seg Neutrophils % 55.9 % (40.0-70.0) 09/09/16 10:40 Seg Neutrophils # 6.3 K/mm3 (1.8-7.7) 09/09/16 10:40 PT 13.2 Sec. (12.2-14.9) 09/09/16 10:40 INR 1.01 (0.87-1.13) 09/09/16 10:40 APTT 33.7 Sec. (24.2-36.6) 09/09/16 10:40 Sodium 139 mmol/L (137-145) 09/09/16 10:40 Potassium 3.9 mmol/L (3.6-5.0) 09/09/16 10:40 Chloride 98.5 mmol/L (98-107) 09/09/16 10:40 Carbon Dioxide 25 mmol/L (22-30) 09/09/16 10:40 Anion Gap 19 mmol/L 09/09/16 10:40 BUN 10 mg/dL (7-17) 09/09/16 10:40 Creatinine 0.7 mg/dL (0.7-1.2) 09/09/16 10:40 Estimated GFR > 60 ml/min 09/09/16 10:40 BUN/Creatinine Ratio 14.28 % 09/09/16 10:40 Glucose 87 mg/dL (65-100) 09/09/16 10:40 POC Glucose 103 (70-105) 09/19/16 08:01 Calcium 10.0 mg/dL (8.4-10.2) 09/09/16 10:40 Total Bilirubin 0.4 mg/dL (0.1-1.2) 09/09/16 10:40 AST 43 units/L (5-40) H 09/09/16 10:40 ALT 26 units/L (7-56) 09/09/16 10:40 Alkaline Phosphatase 70 units/L (35-129) 09/09/16 10:40 Total Protein 8.2 g/dL (6.3-8.2) 09/09/16 10:40 Albumin 3.9 g/dL (3.9-5) 09/09/16 10:40 Albumin/Globulin Ratio 0.9 % 09/09/16 10:40 Blood Type O POSITIVE 09/16/16 06:45 Antibody Screen Negative 09/16/16 06:45
[2016-09-19] MEDS: ASPIRIN PO SCH ×2 (10:30→21:18)
[2016-09-19] MEDS: LASIX PO SCH (10:30)
[2016-09-19] MEDS: OxyCONTIN PO SCH ×2 (10:30→21:19)
[2016-09-19] MEDS: LOVENOX SUB-Q SCH (10:53)
[2016-09-19] MEDS: COLACE PO SCH ×2 (10:53→21:19)
[2016-09-19] MEDS: THERAGRAN Tab PO SCH (10:53)
[2016-09-20] MEDS: NOVOLOG SUB-Q SCH (08:00)
[2016-09-20] MEDS: GLUCOPHAGE PO SCH ×2 (08:27→21:02)
[2016-09-20] MEDS: THERAGRAN Tab PO SCH (10:47)
[2016-09-20] MEDS: LOVENOX SUB-Q SCH (10:47)
[2016-09-20] MEDS: ASPIRIN PO SCH ×2 (10:48→21:03)
[2016-09-20] MEDS: COLACE PO SCH ×2 (10:48→21:01)
[2016-09-20] MEDS: LASIX PO SCH (10:48)
[2016-09-20] MEDS: OxyCONTIN PO SCH ×2 (10:49→21:03)
--- NOTE | 2016-09-20 12:48 | Progress Note ---
Assessment and Plan Assessment and plan: Patient is a pleasant 66-year-old female admitted to the hospital for right hip arthroplasty following severe right hip pain that has failed outpatient therapy. - Patient Problems (1) Osteoarthritis of right hip Current Visit: Yes Status: Chronic Qualifiers: Osteoarthritis type: primary Qualified Code(s): M16.11 - Unilateral primary osteoarthritis, right hip Plan to address problem: Status post right hip arthroplasty stable. Worked with physical therapy. Pain control per surgeon. Incentive spirometer encouraged and discussed in detail with the patient. AWAITING placement (2) Arthritis Current Visit: Yes Status: Chronic Plan to address problem: Stable continue current therapy (3) Edema extremities Current Visit: Yes Status: Chronic Plan to address problem: Continue current lasix. Monitor Renal function (4) Osteoporosis Current Visit: Yes Status: Chronic (5) T2DM (type 2 diabetes mellitus) Current Visit: Yes Status: Chronic Qualifiers: Diabetes mellitus complication status: without complication Diabetes mellitus shelter insulin use: without buttermilk drier operator use Qualified Code(s): E11.9 - Type 2 diabetes mellitus without complications Plan to address problem: Continue metformin (6) DVT prophylaxis Current Visit: Yes Status: Acute History Interval history: Follow-up right hip arthroplasty-postop Patient seen and examined this morning in no acute distress Denies any chest pain, nausea, vomiting, diarrhea No fever noted blood pressure controlled No adverse events reported to me by nursing staff Hospitalist Physical - Physical exam Narrative exam: VITAL SIGNS: Reviewed. GENERAL: The patient appeared well nourished and normally developed. Vital signs as documented. HEAD: No signs of head trauma. EYES: Pupils are equal. Extraocular motions intact. EARS: Hearing grossly intact. MOUTH: Oropharynx is normal. NECK: No adenopathy, no JVD. CHEST: Chest with clear breath sounds bilaterally. No wheezes, rales, or rhonchi. CARDIAC: Regular rate and rhythm. S1 and S2, without murmurs, gallops, or rubs. VASCULAR: No Edema. Peripheral pulses normal and equal in all extremities. ABDOMEN: Soft, without detectable tenderness. No sign of distention. No rebound or guarding, and no masses palpated. Bowel Sounds normal. MUSCULOSKELETAL: Good range of motion of all major joints. Extremities without clubbing, cyanosis or edema. NEUROLOGIC EXAM: Alert and oriented x 3. No focal sensory or strength deficits. Speech normal. Follows commands. PSYCHIATRIC: Mood normal. SKIN: Right hip surgical dressing in place no overt drainage - Constitutional Vitals: Temp Pulse Resp BP Pulse Ox 98.3 F 86 16 121/53 98 09/20/16 08:00 09/20/16 08:00 09/20/16 10:00 09/20/16 08:00 09/20/16 08:00 General appearance: Present: no acute distress, well-nourished Results - Labs CBC & Chem 7: 09/09/16 10:40 09/09/16 10:40 Labs: Laboratory Last Values WBC 11.3 K/mm3 (4.5-11.0) H 09/09/16 10:40 RBC 4.25 M/mm3 (3.65-5.03) 09/09/16 10:40 Hgb 13.4 gm/dl (10.1-14.3) 09/09/16 10:40 Hct 40.0 % (30.3-42.9) 09/09/16 10:40 MCV 94 fl (79-97) 09/09/16 10:40 MCH 31 pg (28-32) 09/09/16 10:40 MCHC 33 % (30-34) 09/09/16 10:40 RDW 12.3 % (13.2-15.2) L 09/09/16 10:40 Plt Count 247 K/mm3 (140-440) 09/09/16 10:40 Lymph % (Auto) 31.3 % (13.4-35.0) 09/09/16 10:40 [place] % (Auto) 10.9 % (0.0-7.3) H 09/09/16 10:40 Eos % (Auto) 1.6 % (0.0-4.3) 09/09/16 10:40 Baso % (Auto) 0.3 % (0.0-1.8) 09/09/16 10:40 Lymph # 3.5 K/mm3 (1.2-5.4) 09/09/16 10:40 [place] # 1.2 K/mm3 (0.0-0.8) H 09/09/16 10:40 Eos # 0.2 K/mm3 (0.0-0.4) 09/09/16 10:40 Baso # 0.0 K/mm3 (0.0-0.1) 09/09/16 10:40 Seg Neutrophils % 55.9 % (40.0-70.0) 09/09/16 10:40 Seg Neutrophils # 6.3 K/mm3 (1.8-7.7) 09/09/16 10:40 PT 13.2 Sec. (12.2-14.9) 09/09/16 10:40 INR 1.01 (0.87-1.13) 09/09/16 10:40 APTT 33.7 Sec. (24.2-36.6) 09/09/16 10:40 Sodium 139 mmol/L (137-145) 09/09/16 10:40 Potassium 3.9 mmol/L (3.6-5.0) 09/09/16 10:40 Chloride 98.5 mmol/L (98-107) 09/09/16 10:40 Carbon Dioxide 25 mmol/L (22-30) 09/09/16 10:40 Anion Gap 19 mmol/L 09/09/16 10:40 BUN 10 mg/dL (7-17) 09/09/16 10:40 Creatinine 0.7 mg/dL (0.7-1.2) 09/09/16 10:40 Estimated GFR > 60 ml/min 09/09/16 10:40 BUN/Creatinine Ratio 14.28 % 09/09/16 10:40 Glucose 87 mg/dL (65-100) 09/09/16 10:40 POC Glucose 102 (70-105) 09/20/16 11:50 Calcium 10.0 mg/dL (8.4-10.2) 09/09/16 10:40 Total Bilirubin 0.4 mg/dL (0.1-1.2) 09/09/16 10:40 AST 43 units/L (5-40) H 09/09/16 10:40 ALT 26 units/L (7-56) 09/09/16 10:40 Alkaline Phosphatase 70 units/L (35-129) 09/09/16 10:40 Total Protein 8.2 g/dL (6.3-8.2) 09/09/16 10:40 Albumin 3.9 g/dL (3.9-5) 09/09/16 10:40 Albumin/Globulin Ratio 0.9 % 09/09/16 10:40 Blood Type O POSITIVE 09/16/16 06:45 Antibody Screen Negative 09/16/16 06:45
[2016-09-21] MEDS: GLUCOPHAGE PO SCH ×2 (09:20→22:01)
[2016-09-21] MEDS: ASPIRIN PO SCH ×2 (09:21→22:01)
[2016-09-21] MEDS: NOVOLOG SUB-Q SCH (09:21)
[2016-09-21] MEDS: LOVENOX SUB-Q SCH (09:22)
[2016-09-21] MEDS: COLACE PO SCH ×2 (09:22→22:38)
[2016-09-21] MEDS: LASIX PO SCH (09:22)
[2016-09-21] MEDS: THERAGRAN Tab PO SCH (09:23)
[2016-09-21] MEDS: OxyCONTIN PO SCH ×2 (09:23→22:02)
--- NOTE | 2016-09-21 13:26 | Progress Note ---
Assessment and Plan Assessment and plan: Patient is a pleasant 66-year-old female admitted to the hospital for right hip arthroplasty following severe right hip pain that has failed outpatient therapy. - Patient Problems (1) Osteoarthritis of right hip Current Visit: Yes Status: Chronic Qualifiers: Osteoarthritis type: primary Qualified Code(s): M16.11 - Unilateral primary osteoarthritis, right hip Plan to address problem: Stable. No overt drainage noted. (2) Arthritis Current Visit: Yes Status: Chronic Plan to address problem: Stable continue current therapy (3) Edema extremities Current Visit: Yes Status: Chronic Plan to address problem: Continue current lasix. Monitor Renal function (4) Osteoporosis Current Visit: Yes Status: Chronic (5) T2DM (type 2 diabetes mellitus) Current Visit: Yes Status: Chronic Qualifiers: Diabetes mellitus complication status: without complication Diabetes mellitus termite exterminator helper insulin use: without termite exterminator helper use Qualified Code(s): E11.9 - Type 2 diabetes mellitus without complications Plan to address problem: Continue metformin (6) DVT prophylaxis Current Visit: Yes Status: Acute History Interval history: Follow-up right hip arthroplasty-postop Patient seen and examined this morning in no acute distress. Awaiting insurance approval for placement Denies any chest pain, nausea, vomiting, diarrhea No fever noted blood pressure controlled No adverse events reported to me by nursing staff Hospitalist Physical - Physical exam Narrative exam: VITAL SIGNS: Reviewed. GENERAL: The patient appeared well nourished and normally developed. Vital signs as documented. HEAD: No signs of head trauma. EYES: Pupils are equal. Extraocular motions intact. EARS: Hearing grossly intact. MOUTH: Oropharynx is normal. NECK: No adenopathy, no JVD. CHEST: Chest with clear breath sounds bilaterally. No wheezes, rales, or rhonchi. CARDIAC: Regular rate and rhythm. S1 and S2, without murmurs, gallops, or rubs. VASCULAR: No Edema. Peripheral pulses normal and equal in all extremities. ABDOMEN: Soft, without detectable tenderness. No sign of distention. No rebound or guarding, and no masses palpated. Bowel Sounds normal. MUSCULOSKELETAL: Good range of motion of all major joints. Extremities without clubbing, cyanosis or edema. NEUROLOGIC EXAM: Alert and oriented x 3. No focal sensory or strength deficits. Speech normal. Follows commands. PSYCHIATRIC: Mood normal. SKIN: Right hip surgical dressing in place no overt drainage - Constitutional Vitals: Temp Pulse Resp BP Pulse Ox 97.3 F L 83 20 121/56 98 09/21/16 08:00 09/21/16 08:00 09/21/16 12:27 09/21/16 08:00 09/21/16 08:00 General appearance: Present: no acute distress, well-nourished Results - Labs CBC & Chem 7: 09/09/16 10:40 09/09/16 10:40 Labs: Laboratory Last Values WBC 11.3 K/mm3 (4.5-11.0) H 09/09/16 10:40 RBC 4.25 M/mm3 (3.65-5.03) 09/09/16 10:40 Hgb 13.4 gm/dl (10.1-14.3) 09/09/16 10:40 Hct 40.0 % (30.3-42.9) 09/09/16 10:40 MCV 94 fl (79-97) 09/09/16 10:40 MCH 31 pg (28-32) 09/09/16 10:40 MCHC 33 % (30-34) 09/09/16 10:40 RDW 12.3 % (13.2-15.2) L 09/09/16 10:40 Plt Count 247 K/mm3 (140-440) 09/09/16 10:40 Lymph % (Auto) 31.3 % (13.4-35.0) 09/09/16 10:40 [place] % (Auto) 10.9 % (0.0-7.3) H 09/09/16 10:40 Eos % (Auto) 1.6 % (0.0-4.3) 09/09/16 10:40 Baso % (Auto) 0.3 % (0.0-1.8) 09/09/16 10:40 Lymph # 3.5 K/mm3 (1.2-5.4) 09/09/16 10:40 [place] # 1.2 K/mm3 (0.0-0.8) H 09/09/16 10:40 Eos # 0.2 K/mm3 (0.0-0.4) 09/09/16 10:40 Baso # 0.0 K/mm3 (0.0-0.1) 09/09/16 10:40 Seg Neutrophils % 55.9 % (40.0-70.0) 09/09/16 10:40 Seg Neutrophils # 6.3 K/mm3 (1.8-7.7) 09/09/16 10:40 PT 13.2 Sec. (12.2-14.9) 09/09/16 10:40 INR 1.01 (0.87-1.13) 09/09/16 10:40 APTT 33.7 Sec. (24.2-36.6) 09/09/16 10:40 Sodium 139 mmol/L (137-145) 09/09/16 10:40 Potassium 3.9 mmol/L (3.6-5.0) 09/09/16 10:40 Chloride 98.5 mmol/L (98-107) 09/09/16 10:40 Carbon Dioxide 25 mmol/L (22-30) 09/09/16 10:40 Anion Gap 19 mmol/L 09/09/16 10:40 BUN 10 mg/dL (7-17) 09/09/16 10:40 Creatinine 0.7 mg/dL (0.7-1.2) 09/09/16 10:40 Estimated GFR > 60 ml/min 09/09/16 10:40 BUN/Creatinine Ratio 14.28 % 09/09/16 10:40 Glucose 87 mg/dL (65-100) 09/09/16 10:40 POC Glucose 148 (70-105) H 09/21/16 11:20 Calcium 10.0 mg/dL (8.4-10.2) 09/09/16 10:40 Total Bilirubin 0.4 mg/dL (0.1-1.2) 09/09/16 10:40 AST 43 units/L (5-40) H 09/09/16 10:40 ALT 26 units/L (7-56) 09/09/16 10:40 Alkaline Phosphatase 70 units/L (35-129) 09/09/16 10:40 Total Protein 8.2 g/dL (6.3-8.2) 09/09/16 10:40 Albumin 3.9 g/dL (3.9-5) 09/09/16 10:40 Albumin/Globulin Ratio 0.9 % 09/09/16 10:40 Blood Type O POSITIVE 09/16/16 06:45 Antibody Screen Negative 09/16/16 06:45
--- NOTE | 2016-09-21 13:33 | Progress Note ---
Assessment and Plan - Patient Problems (1) Osteoarthritis of right hip Current Visit: Yes Status: Chronic Qualifiers: Osteoarthritis type: primary Qualified Code(s): M16.11 - Unilateral primary osteoarthritis, right hip Plan to address problem: Continue with progressive ablation, DVT prophylaxis, plan discharge in the next one to 2 days.awaiting placement Subjective Date of service: 09/21/16 Interval history: Status post total hip arthroplasty, sat by bedside, no complaints today. No calf pain, tenderness. Objective Vital signs: Vital Signs - 12hr 09/21/16 09/21/16 09/21/16 08:00 09:21 09:23 Temperature 97.3 F L Pulse Rate [ 83 Apical] Respiratory 20 20 20 Rate Respiratory Rate [Right Hip ] Blood Pressure 121/56 [Right Arm] O2 Sat by Pulse 98 Oximetry 09/21/16 12:27 Temperature Pulse Rate [ Apical] Respiratory Rate Respiratory 20 Rate [Right Hip ] Blood Pressure [Right Arm] O2 Sat by Pulse Oximetry - Labs CBC & BMP: 09/09/16 10:40 09/09/16 10:40 Labs: Abnormal lab results 09/20/16 09/20/16 09/21/16 Range/Units 15:58 20:48 11:20 POC Glucose 148 H 149 H 148 H (70-105)
[2016-09-21] MEDS: PERCOCET 5/325 PO PRN (13:54)
--- NOTE | 2016-09-22 07:18 | Progress Note ---
Assessment and Plan Assessment and plan: Patient is a pleasant 66-year-old female admitted to the hospital for right hip arthroplasty following severe right hip pain that has failed outpatient therapy. - Patient Problems (1) Osteoarthritis of right hip Current Visit: Yes Status: Chronic Qualifiers: Osteoarthritis type: primary Qualified Code(s): M16.11 - Unilateral primary osteoarthritis, right hip Plan to address problem: Stable. No overt drainage noted. (2) Arthritis Current Visit: Yes Status: Chronic Plan to address problem: Stable continue current therapy (3) Edema extremities Current Visit: Yes Status: Chronic Plan to address problem: Continue current lasix. Monitor Renal function (4) Osteoporosis Current Visit: Yes Status: Chronic Plan to address problem: Recommended vitamin D and calcium. Patient will follow primary care physician (5) T2DM (type 2 diabetes mellitus) Current Visit: Yes Status: Chronic Qualifiers: Diabetes mellitus complication status: without complication Diabetes mellitus half-way insulin use: without half-way use Qualified Code(s): E11.9 - Type 2 diabetes mellitus without complications Plan to address problem: Continue metformin (6) DVT prophylaxis Current Visit: Yes Status: Acute History Interval history: Follow-up right hip arthroplasty-postop Patient seen and examined this morning in no acute distress. Awaiting insurance approval for placement Denies any chest pain, nausea, vomiting, diarrhea No fever noted blood pressure controlled No adverse events reported to me by nursing staff Hospitalist Physical - Physical exam Narrative exam: VITAL SIGNS: Reviewed. GENERAL: The patient appeared well nourished and normally developed. Vital signs as documented. HEAD: No signs of head trauma. EYES: Pupils are equal. Extraocular motions intact. EARS: Hearing grossly intact. MOUTH: Oropharynx is normal. NECK: No adenopathy, no JVD. CHEST: Chest with clear breath sounds bilaterally. No wheezes, rales, or rhonchi. CARDIAC: Regular rate and rhythm. S1 and S2, without murmurs, gallops, or rubs. VASCULAR: No Edema. Peripheral pulses normal and equal in all extremities. ABDOMEN: Soft, without detectable tenderness. No sign of distention. No rebound or guarding, and no masses palpated. Bowel Sounds normal. MUSCULOSKELETAL: Good range of motion of all major joints. Extremities without clubbing, cyanosis or edema. NEUROLOGIC EXAM: Alert and oriented x 3. No focal sensory or strength deficits. Speech normal. Follows commands. PSYCHIATRIC: Mood normal. SKIN: Right hip surgical site clean and dry - Constitutional Vitals: Temp Pulse Resp BP Pulse Ox 98.5 F 85 18 114/64 97 09/22/16 00:00 09/22/16 00:00 09/22/16 00:00 09/22/16 00:00 09/22/16 00:00 General appearance: Present: no acute distress, well-nourished Results - Labs CBC & Chem 7: 09/09/16 10:40 09/09/16 10:40 Labs: Laboratory Last Values WBC 11.3 K/mm3 (4.5-11.0) H 09/09/16 10:40 RBC 4.25 M/mm3 (3.65-5.03) 09/09/16 10:40 Hgb 13.4 gm/dl (10.1-14.3) 09/09/16 10:40 Hct 40.0 % (30.3-42.9) 09/09/16 10:40 MCV 94 fl (79-97) 09/09/16 10:40 MCH 31 pg (28-32) 09/09/16 10:40 MCHC 33 % (30-34) 09/09/16 10:40 RDW 12.3 % (13.2-15.2) L 09/09/16 10:40 Plt Count 247 K/mm3 (140-440) 09/09/16 10:40 Lymph % (Auto) 31.3 % (13.4-35.0) 09/09/16 10:40 [place] % (Auto) 10.9 % (0.0-7.3) H 09/09/16 10:40 Eos % (Auto) 1.6 % (0.0-4.3) 09/09/16 10:40 Baso % (Auto) 0.3 % (0.0-1.8) 09/09/16 10:40 Lymph # 3.5 K/mm3 (1.2-5.4) 09/09/16 10:40 [place] # 1.2 K/mm3 (0.0-0.8) H 09/09/16 10:40 Eos # 0.2 K/mm3 (0.0-0.4) 09/09/16 10:40 Baso # 0.0 K/mm3 (0.0-0.1) 09/09/16 10:40 Seg Neutrophils % 55.9 % (40.0-70.0) 09/09/16 10:40 Seg Neutrophils # 6.3 K/mm3 (1.8-7.7) 09/09/16 10:40 PT 13.2 Sec. (12.2-14.9) 09/09/16 10:40 INR 1.01 (0.87-1.13) 09/09/16 10:40 APTT 33.7 Sec. (24.2-36.6) 09/09/16 10:40 Sodium 139 mmol/L (137-145) 09/09/16 10:40 Potassium 3.9 mmol/L (3.6-5.0) 09/09/16 10:40 Chloride 98.5 mmol/L (98-107) 09/09/16 10:40 Carbon Dioxide 25 mmol/L (22-30) 09/09/16 10:40 Anion Gap 19 mmol/L 09/09/16 10:40 BUN 10 mg/dL (7-17) 09/09/16 10:40 Creatinine 0.7 mg/dL (0.7-1.2) 09/09/16 10:40 Estimated GFR > 60 ml/min 09/09/16 10:40 BUN/Creatinine Ratio 14.28 % 09/09/16 10:40 Glucose 87 mg/dL (65-100) 09/09/16 10:40 POC Glucose 121 (70-105) H 09/21/16 22:58 Calcium 10.0 mg/dL (8.4-10.2) 09/09/16 10:40 Total Bilirubin 0.4 mg/dL (0.1-1.2) 09/09/16 10:40 AST 43 units/L (5-40) H 09/09/16 10:40 ALT 26 units/L (7-56) 09/09/16 10:40 Alkaline Phosphatase 70 units/L (35-129) 09/09/16 10:40 Total Protein 8.2 g/dL (6.3-8.2) 09/09/16 10:40 Albumin 3.9 g/dL (3.9-5) 09/09/16 10:40 Albumin/Globulin Ratio 0.9 % 01/18/17 10:40 Blood Type O POSITIVE 09/16/16 06:45 Antibody Screen Negative 09/16/16 06:45
[2016-09-22] MEDS: NOVOLOG SUB-Q SCH (08:00)
[2016-09-22] MEDS: GLUCOPHAGE PO SCH ×2 (08:11→22:29)
[2016-09-22] MEDS: COLACE PO SCH ×2 (10:01→22:29)
[2016-09-22] MEDS: LASIX PO SCH (10:02)
[2016-09-22] MEDS: OxyCONTIN PO SCH ×2 (10:02→22:29)
[2016-09-22] MEDS: THERAGRAN Tab PO SCH (10:02)
[2016-09-22] MEDS: ASPIRIN PO SCH ×2 (10:03→22:30)
[2016-09-22] MEDS: LOVENOX SUB-Q SCH (10:03)
--- NOTE | 2016-09-22 10:11 | Progress Note ---
Assessment and Plan - Patient Problems (1) Osteoarthritis of right hip Current Visit: Yes Status: Chronic Qualifiers: Osteoarthritis type: primary Qualified Code(s): M16.11 - Unilateral primary osteoarthritis, right hip Plan to address problem: No new complaints, out of bed and ablating. To be discharged to subacute rehabilitation, follow up in office. Home care instructions given. Subjective Date of service: 09/22/16 Interval history: Status post total hip arthroplasty, sat by bedside, no complaints today. No calf pain, tenderness. Objective Vital signs: Vital Signs - 12hr 09/22/16 09/22/16 09/22/16 00:00 09:59 10:02 Temperature 98.5 F Pulse Rate [ 85 Right From Monitor] Respiratory 18 16 16 Rate Blood Pressure 114/64 [Right Arm] O2 Sat by Pulse 97 Oximetry - Labs CBC & BMP: 09/09/16 10:40 09/09/16 10:40 Labs: Abnormal lab results 09/21/16 09/21/16 09/21/16 Range/Units 11:20 16:48 22:58 POC Glucose 148 H 127 H 121 H (70-105) 09/22/16 Range/Units 07:46 POC Glucose 113 H (70-105)
--- NOTE | 2016-09-22 11:34 | Discharge Summary ---
Providers - Providers Date of Admission: 09/16/16 06:12 Date of discharge: 09/22/16 Attending physician: LEON ASHTON MD 09/16/16 00:01 Consult to Case Management [CONS] Routine Services Needed at Discharge: Home Health Services DME Equipment Physical Therapy Notified:: [employer] Additional Physician Instructions: Patient requests home health with nursing and PT Consult to Physician [CONS] Routine Consulting Provider: CAROL JIMÉNEZ Reason For Exam: post op medical care Place consult to:: DR. JIMÉNEZ Notified:: DR. JIMÉNEZ Was contact made?: Yes If yes, spoke with:: DR. JIMÉNEZ Comment:: COMPLETED - [facility] Physical Therapy Evaluation and Treat [CONS] Routine Comment: Reason For Exam: s/p right total hip Mode of Transport?: Wheelchair Weight bearing status?: Partial wt bearing Assistive devices?: Yes If so list: Walker 09/21/16 13:55 Consult to Wound/ET Nurse [CONS] Routine Reason For Exam: wound eval Primary care physician: EL STRONG Hospitalization Reason for admission: DJD hip Condition: Stable Procedures: total hip arthroplasty, [place], noncemented. Disposition: DC/TX SNF W [facility] CERT - Discharge Diagnoses (1) Osteoarthritis of right hip Status: Chronic Qualifiers: Osteoarthritis type: primary Qualified Code(s): M16.11 - Unilateral primary osteoarthritis, right hip Core Measure Documentation - Palliative Care Palliative Care/ Comfort Measures: Not Applicable - Core Measures Any of the following diagnoses?: none Exam - Constitutional Vitals: Temp Pulse Resp BP Pulse Ox 98.3 F 91 H 16 130/63 97 09/22/16 08:00 09/22/16 08:00 09/22/16 10:02 09/22/16 08:00 09/22/16 00:00 Plan Activity: no driving until cleared by PCP, up only with assistance, fall precautions, avoid flexion Weight Bearing Status: Full Weight Bearing Diet: regular Durable Medical Equipment Needed Upon Discharge: Walker-Rolling, Bedside commode -elevated Follow up with: EL STRONG MD [Primary Care Provider] - 7 Days FARHEEN LABOY MD [Staff Physician] - 7 Days
[2016-09-23] MEDS ORDERED: DULCOLAX PR ONE (08:12)
[2016-09-23] MEDS ORDERED: CEPHULAC ONE (08:13)
--- NOTE | 2016-09-23 13:33 | Progress Note ---
Assessment and Plan Assessment and plan: Patient is a pleasant 66-year-old female admitted to the hospital for right hip arthroplasty following severe right hip pain that has failed outpatient therapy. - Patient Problems (1) Constipation Current Visit: Yes Status: Acute Qualifiers: Constipation type: C Plan to address problem: start on lactulose BID hold for loose stool Dulcolax supp. (2) Osteoarthritis of right hip Current Visit: Yes Status: Chronic Qualifiers: Osteoarthritis type: primary Qualified Code(s): M16.11 - Unilateral primary osteoarthritis, right hip Plan to address problem: per surgery OT/PT Recommendations noted (3) T2DM (type 2 diabetes mellitus) Current Visit: Yes Status: Chronic Qualifiers: Diabetes mellitus complication status: without complication Diabetes mellitus complication detail: D Diabetic retinopathy severity: D Proliferative retinopathy type: P Diabetes mellitus macular edema: D Diabetes mellitus half-way insulin use: without half-way use Laterality: L Chronic kidney disease stage: C Qualified Code(s): E11.9 - Type 2 diabetes mellitus without complications Plan to address problem: Continue ordered insulin. acchs as needed. (4) Arthritis Current Visit: Yes Status: Chronic (5) Osteoporosis Current Visit: Yes Status: Chronic Plan to address problem: vitamin D and calcium outpatient (6) Edema extremities Current Visit: Yes Status: Chronic Plan to address problem: stable. continue current therapy (7) DVT prophylaxis Current Visit: Yes Status: Acute History Interval history: Follow-up right hip arthroplasty-postop Patient seen and examined this morning in mild distress secondary to constipation. Awaiting insurance approval for placement Denies any chest pain, nausea, vomiting, diarrhea No fever noted blood pressure controlled No adverse events reported to me by nursing staff Hospitalist Physical - Physical exam Narrative exam: VITAL SIGNS: Reviewed. GENERAL: The patient appeared well nourished and normally developed. Vital signs as documented. HEAD: No signs of head trauma. EYES: Pupils are equal. Extraocular motions intact. EARS: Hearing grossly intact. MOUTH: Oropharynx is normal. NECK: No adenopathy, no JVD. CHEST: Chest with clear breath sounds bilaterally. No wheezes, rales, or rhonchi. CARDIAC: Regular rate and rhythm. S1 and S2, without murmurs, gallops, or rubs. VASCULAR: No Edema. Peripheral pulses normal and equal in all extremities. ABDOMEN: Soft, without detectable tenderness. No sign of distention. No rebound or guarding, and no masses palpated. Bowel Sounds normal. MUSCULOSKELETAL: Good range of motion of all major joints. Extremities without clubbing, cyanosis or edema. NEUROLOGIC EXAM: Alert and oriented x 3. No focal sensory or strength deficits. Speech normal. Follows commands. PSYCHIATRIC: Mood emotional. SKIN: Right hip surgical site clean and dry - Constitutional Vitals: Temp Pulse Resp BP Pulse Ox 98.3 F 82 20 114/54 99 09/23/16 00:33 09/23/16 00:33 09/23/16 00:33 09/23/16 00:33 09/23/16 00:33 General appearance: Present: no acute distress, well-nourished Results - Labs CBC & Chem 7: 09/09/16 10:40 09/09/16 10:40 Labs: Laboratory Last Values WBC 11.3 K/mm3 (4.5-11.0) H 09/09/16 10:40 RBC 4.25 M/mm3 (3.65-5.03) 09/09/16 10:40 Hgb 13.4 gm/dl (10.1-14.3) 09/09/16 10:40 Hct 40.0 % (30.3-42.9) 09/09/16 10:40 MCV 94 fl (79-97) 09/09/16 10:40 MCH 31 pg (28-32) 09/09/16 10:40 MCHC 33 % (30-34) 09/09/16 10:40 RDW 12.3 % (13.2-15.2) L 09/09/16 10:40 Plt Count 247 K/mm3 (140-440) 09/09/16 10:40 Lymph % (Auto) 31.3 % (13.4-35.0) 09/09/16 10:40 [place] % (Auto) 10.9 % (0.0-7.3) H 09/09/16 10:40 Eos % (Auto) 1.6 % (0.0-4.3) 09/09/16 10:40 Baso % (Auto) 0.3 % (0.0-1.8) 09/09/16 10:40 Lymph # 3.5 K/mm3 (1.2-5.4) 09/09/16 10:40 [place] # 1.2 K/mm3 (0.0-0.8) H 09/09/16 10:40 Eos # 0.2 K/mm3 (0.0-0.4) 09/09/16 10:40 Baso # 0.0 K/mm3 (0.0-0.1) 09/09/16 10:40 Seg Neutrophils % 55.9 % (40.0-70.0) 09/09/16 10:40 Seg Neutrophils # 6.3 K/mm3 (1.8-7.7) 09/09/16 10:40 PT 13.2 Sec. (12.2-14.9) 09/09/16 10:40 INR 1.01 (0.87-1.13) 09/09/16 10:40 APTT 33.7 Sec. (24.2-36.6) 09/09/16 10:40 Sodium 139 mmol/L (137-145) 09/09/16 10:40 Potassium 3.9 mmol/L (3.6-5.0) 09/09/16 10:40 Chloride 98.5 mmol/L (98-107) 09/09/16 10:40 Carbon Dioxide 25 mmol/L (22-30) 09/09/16 10:40 Anion Gap 19 mmol/L 09/09/16 10:40 BUN 10 mg/dL (7-17) 09/09/16 10:40 Creatinine 0.7 mg/dL (0.7-1.2) 09/09/16 10:40 Estimated GFR > 60 ml/min 09/09/16 10:40 BUN/Creatinine Ratio 14.28 % 09/09/16 10:40 Glucose 87 mg/dL (65-100) 09/09/16 10:40 POC Glucose 142 (70-105) H 09/23/16 12:23 Calcium 10.0 mg/dL (8.4-10.2) 09/09/16 10:40 Total Bilirubin 0.4 mg/dL (0.1-1.2) 09/09/16 10:40 AST 43 units/L (5-40) H 09/09/16 10:40 ALT 26 units/L (7-56) 09/09/16 10:40 Alkaline Phosphatase 70 units/L (35-129) 09/09/16 10:40 Total Protein 8.2 g/dL (6.3-8.2) 09/09/16 10:40 Albumin 3.9 g/dL (3.9-5) 09/09/16 10:40 Albumin/Globulin Ratio 0.9 % 09/09/16 10:40 Blood Type O POSITIVE 09/16/16 06:45 Antibody Screen Negative 09/16/16 06:45
[2016-09-23] MEDS ORDERED: CEPHULAC PO ONE ×2 (21:00→23:30)
[2016-09-23] MEDS: COLACE PO SCH ×2 (22:00→23:49)
[2016-09-23] MEDS: OxyCONTIN PO SCH (23:48)
[2016-09-23] MEDS: GLUCOPHAGE PO SCH (23:50)
[2016-09-23] MEDS: ASPIRIN PO SCH (23:54)
[2016-09-24] MEDS ORDERED: DULCOLAX PR PRN (10:00)
[2016-09-24] MEDS: ASPIRIN PO SCH (10:57)
[2016-09-24] MEDS: THERAGRAN Tab PO SCH (10:58)
[2016-09-24] MEDS: OxyCONTIN PO SCH (10:59)
[2016-09-24] MEDS: COLACE PO SCH (10:59)
[2016-09-24] MEDS: LASIX PO SCH (11:00)
[2016-09-24] MEDS: LOVENOX SUB-Q SCH (11:00)
[2016-09-24 14:54] VITALS: BP 135/71
--- NOTE | 2016-09-24 15:39 | Progress Note ---
Assessment and Plan Assessment and plan: Patient is a pleasant 66-year-old female admitted to the hospital for right hip arthroplasty following severe right hip pain that has failed outpatient therapy. - Patient Problems (1) Constipation Current Visit: Yes Status: Acute Qualifiers: Constipation type: C Plan to address problem: Resolved (2) Osteoarthritis of right hip Current Visit: Yes Status: Chronic Qualifiers: Osteoarthritis type: primary Qualified Code(s): M16.11 - Unilateral primary osteoarthritis, right hip Plan to address problem: per surgery OT/PT Recommendations noted (3) T2DM (type 2 diabetes mellitus) Status: Chronic Qualifiers: Diabetes mellitus complication status: without complication Diabetes mellitus complication detail: D Diabetic retinopathy severity: D Proliferative retinopathy type: P Diabetes mellitus macular edema: D Diabetes mellitus intermediate designer insulin use: without jail use Laterality: L Chronic kidney disease stage: C Qualified Code(s): E11.9 - Type 2 diabetes mellitus without complications Plan to address problem: Continue ordered insulin. acchs as needed. (4) Arthritis Current Visit: Yes Status: Chronic (5) Osteoporosis Current Visit: Yes Status: Chronic Plan to address problem: vitamin D and calcium outpatient (6) Edema extremities Current Visit: Yes Status: Chronic Plan to address problem: stable. continue current therapy (7) DVT prophylaxis Current Visit: Yes Status: Acute History Interval history: Follow-up right hip arthroplasty-postop Patient seen and examined this morning, she moved her bowel and no further pain Denies any chest pain, nausea, vomiting, diarrhea No fever noted blood pressure controlled No adverse events reported to me by nursing staff Hospitalist Physical - Physical exam Narrative exam: VITAL SIGNS: Reviewed. GENERAL: The patient appeared well nourished and normally developed. Vital signs as documented. HEAD: No signs of head trauma. EYES: Pupils are equal. Extraocular motions intact. EARS: Hearing grossly intact. MOUTH: Oropharynx is normal. NECK: No adenopathy, no JVD. CHEST: Chest with clear breath sounds bilaterally. No wheezes, rales, or rhonchi. CARDIAC: Regular rate and rhythm. S1 and S2, without murmurs, gallops, or rubs. VASCULAR: No Edema. Peripheral pulses normal and equal in all extremities. ABDOMEN: Soft, without detectable tenderness. No sign of distention. No rebound or guarding, and no masses palpated. Bowel Sounds normal. MUSCULOSKELETAL: Good range of motion of all major joints. Extremities without clubbing, cyanosis or edema. NEUROLOGIC EXAM: Alert and oriented x 3. No focal sensory or strength deficits. Speech normal. Follows commands. PSYCHIATRIC: Mood emotional. SKIN: Right hip surgical site clean and dry - Constitutional Vitals: Temp Pulse Resp BP Pulse Ox 98.2 F 97 H 18 135/71 98 09/24/16 12:00 09/24/16 12:00 09/24/16 12:00 09/24/16 12:00 09/24/16 08:00 General appearance: Present: no acute distress, well-nourished Results - Labs CBC & Chem 7: 09/09/16 10:40 09/09/16 10:40 Labs: Laboratory Last Values WBC 11.3 K/mm3 (4.5-11.0) H 09/09/16 10:40 RBC 4.25 M/mm3 (3.65-5.03) 09/09/16 10:40 Hgb 13.4 gm/dl (10.1-14.3) 09/09/16 10:40 Hct 40.0 % (30.3-42.9) 09/09/16 10:40 MCV 94 fl (79-97) 09/09/16 10:40 MCH 31 pg (28-32) 09/09/16 10:40 MCHC 33 % (30-34) 09/09/16 10:40 RDW 12.3 % (13.2-15.2) L 09/09/16 10:40 Plt Count 247 K/mm3 (140-440) 09/09/16 10:40 Lymph % (Auto) 31.3 % (13.4-35.0) 09/09/16 10:40 [place] % (Auto) 10.9 % (0.0-7.3) H 09/09/16 10:40 Eos % (Auto) 1.6 % (0.0-4.3) 09/09/16 10:40 Baso % (Auto) 0.3 % (0.0-1.8) 09/09/16 10:40 Lymph # 3.5 K/mm3 (1.2-5.4) 09/09/16 10:40 [place] # 1.2 K/mm3 (0.0-0.8) H 09/09/16 10:40 Eos # 0.2 K/mm3 (0.0-0.4) 09/09/16 10:40 Baso # 0.0 K/mm3 (0.0-0.1) 09/09/16 10:40 Seg Neutrophils % 55.9 % (40.0-70.0) 09/09/16 10:40 Seg Neutrophils # 6.3 K/mm3 (1.8-7.7) 09/09/16 10:40 PT 13.2 Sec. (12.2-14.9) 09/09/16 10:40 INR 1.01 (0.87-1.13) 09/09/16 10:40 APTT 33.7 Sec. (24.2-36.6) 09/09/16 10:40 Sodium 139 mmol/L (137-145) 09/09/16 10:40 Potassium 3.9 mmol/L (3.6-5.0) 09/09/16 10:40 Chloride 98.5 mmol/L (98-107) 09/09/16 10:40 Carbon Dioxide 25 mmol/L (22-30) 09/09/16 10:40 Anion Gap 19 mmol/L 09/09/16 10:40 BUN 10 mg/dL (7-17) 09/09/16 10:40 Creatinine 0.7 mg/dL (0.7-1.2) 09/09/16 10:40 Estimated GFR > 60 ml/min 09/09/16 10:40 BUN/Creatinine Ratio 14.28 % 09/09/16 10:40 Glucose 87 mg/dL (65-100) 09/09/16 10:40 POC Glucose 102 (70-105) 09/24/16 08:01 Calcium 10.0 mg/dL (8.4-10.2) 09/09/16 10:40 Total Bilirubin 0.4 mg/dL (0.1-1.2) 09/09/16 10:40 AST 43 units/L (5-40) H 09/09/16 10:40 ALT 26 units/L (7-56) 09/09/16 10:40 Alkaline Phosphatase 70 units/L (35-129) 09/09/16 10:40 Total Protein 8.2 g/dL (6.3-8.2) 09/09/16 10:40 Albumin 3.9 g/dL (3.9-5) 09/09/16 10:40 Albumin/Globulin Ratio 0.9 % 09/09/16 10:40 Blood Type O POSITIVE 09/16/16 06:45 Antibody Screen Negative 09/16/16 06:45
== END 2016-09-24 12:35 | DRG 470 ==
LOC: 3A 06:12 → 2B-SURG 12:12
PROVIDERS: ADMIT Orthopaedic Surgery; ATTEND Internal Medicine
PROC: 0SR90JA Replacement of Right Hip Joint with Synthetic Substitute, Uncemented, Open Approach (ICD-10-PCS; principal; 2016-09-16)
DX: M16.11 Unilateral primary osteoarthritis, right hip (principal); Z68.41 Body mass index [BMI] 40.0-44.9, adult; R60.0 Localized edema; E66.9 Obesity, unspecified; E11.9 Type 2 diabetes mellitus without complications; M81.0 Age-related osteoporosis without current pathological fracture; J45.909 Unspecified asthma, uncomplicated; J44.9 Chronic obstructive pulmonary disease, unspecified; K21.9 Gastro-esophageal reflux disease without esophagitis; I10 Essential (primary) hypertension; K59.00 Constipation, unspecified; G62.9 Polyneuropathy, unspecified; Z88.6 Allergy status to analgesic agent
CPT/HCPCS: 36415; 62324; 80053; 82962; 85025; 85610; 85730; 86850; 86900; 86901; 88304; 88311; A4217; C1776; G8978-GP; G8979-GP; J0690; J1170; J1650; J2250; J2370; J2405; J2704; J2765; J3010; J7030